=== PATIENT | female | born 1960 | race Caucasian/White ===

== ENCOUNTER 2018-09-05 18:56 | Observation (INO) | payer OTHER ==
[~2018-09-05 18:56] MED LIST: ISOVUE-370 76%-LOCM 1 ML ONE
[2018-09-05 19:47] LABS: #Eosinphils 0.2 thou/uL (0.0-0.7); #Monocytes 0.7 thou/uL (0.11-0.59); #Neutrophils 4.1 thou/uL (1.40-6.50); %Basophils 0.7 % (0.0-1.0); %Eosinophils 2.8 % (0.0-10.0); %Lymphocytes 17.3 % (21.0-51.0); %Neutrophils 68.2 % (42.0-75.0); Hemoglobin 8.5 g/dL (12.0-16.0); Mean Corpuscular Volume 77.4 fL (78.0-98.0); Mean Platelet Volume 6.9 fL (7.4-10.4); Platelet Count 355 thou/uL (130-400); RBC Distribution Width 15.2 % (11.5-14.5); Red Blood Cell (RBC) Count 3.56 mill/uL (4.20-5.40)
[2018-09-05 19:55] LABS: INR-International Normal Ratio 1.1; PTT 29.7 SEC (22.9-36.1); Prothrombin Time 13.8 SEC (12.0-14.7)
[2018-09-05 20:07] LABS: ALT (SGPT) 76 U/L (8-55); AST (SGOT) 26 U/L (5-34); Albumin 3.9 g/dL (3.5-5.0); Alkaline Phosphatase 74 U/L (40-150); Anion Gap 11 mmol/L (10-20); BUN (Urea Nitrogen) 8 mg/dL (9.8-20.1); Bilirubin, Total 0.2 mg/dL (0.2-1.2); CK (CPK) 97 U/L (29-168); Calc. Creatinine Clearance 0 mL/min (70-130); Carbon Dioxide 28 mmol/L (22-29); Chloride 100 mmol/L (98-107); Estimated GFR-MDRD 85; Globulin 2.6 g/dL (2.4-3.5); Glucose 91 mg/dL (70-105); Potassium 4.3 mmol/L (3.5-5.1); Protein, Total 6.5 g/dL (6.0-8.3); Sodium 135 mmol/L (136-145)
--- NOTE | 2018-09-05 20:13 | CT ---
EXAM: CTA of the chest HISTORY: Shortness of breath. The patient had laparoscopic surgery on 09/02/2018 COMPARISON: None TECHNIQUE: Multiple contiguous axial images were obtained a CTA of the chest with contrast per pulmon walter embolism protocol. 3-D oblique MIP reformats and direct coronal reformats were performed. FINDINGS: HEART: Normal in size without focal cardiac abnormality. PULMONARY ARTERIES: Normal in caliber without filling defects to suggest pulmonary emboli. MEDIASTINUM: No hilar or mediastinal lymphadenopathy. The large diaphragmatic hernia has been repaire d. Fluid is seen surrounding the distal esophagus. LUNGS: No focal infiltrates or masses. PLEURAL SPACE: There are small bilateral pleural effusions with adjacent atelectasis. CHEST WALL SOFT TISSUES: A stable hypodensity is seen in the right thyroid lobe. VISUALIZED OSSEOUS STRUCTURES: Unremarkable VISUALIZED SUBDIAPHRAGMATIC STRUCTURES: Postsurgical changes are seen in the upper abdomen near the g astroesophageal junction. IMPRESSION: 1. No evidence of pulmonary thromboembolism 2. Small bilateral pleural effusions with adjacent atelectasis.
[2018-09-05 22:20] VITALS: BMI 31.6
[2018-09-05] MEDS ORDERED: Sodium Chloride 0.9% 1,000 ML IV SCH (22:20)
[2018-09-05] MEDS ORDERED: Ondansetron ODT 4 MG TAB PO PRN (22:40)
[2018-09-05] MEDS: HYDROcodone/Acetaminophen 7.5/325 mg Tablet PO PRN (22:48)
[2018-09-06 05:51] LABS: Hemoglobin 8.4 g/dL (12.0-16.0)
[2018-09-06] MEDS ORDERED: busPIRone HCl 10 MG TAB PO SCH (09:00)
[2018-09-06] MEDS ORDERED: Gabapentin 300 MG CAP PO PRN (09:09)
[2018-09-06] MEDS: Gabapentin 300 MG CAP PO SCH ×2 (09:09→20:12)
[2018-09-06] MEDS: HYDROcodone/Acetaminophen 7.5/325 mg Tablet PO PRN (09:09)
--- NOTE | 2018-09-06 10:21 | HP ---
CHIEF COMPLAINT: Neck pain, shortness of breath. HISTORY OF PRESENT ILLNESS: This is a 57-year-old female, who is status post large paraesophageal hiatal hernia repair last Monday. She stayed through the weekend for pain. Most of her pain has been in her upper chest and left neck. She had minimal shortness of breath. She came back to the emergency room last night because she was worried about this pain, and I had told her that if it did not improve, she would need to come back. Her troponin was negative. Her EKG was negative. Her CT scan showed no PE. It did show some fluid around the distal esophagus consistent with hematoma. Her hemoglobin was slightly down. She is admitted for supportive therapy. PAST MEDICAL HISTORY AND SURGICAL HISTORY: See previous H and Ps. PHYSICAL EXAMINATION: VITAL SIGNS: Blood pressure 127/85, pulse is 79, respirations 14, O2 saturation is 92% to 93% on room air. GENERAL: She is in no acute distress this morning. CHEST: Coarse breath sounds. HEART: Regular rate. ABDOMEN: Soft, nontender. Wounds are healing well. LABORATORY DATA: White blood cell count is 6, hemoglobin this morning is 8.4. Sodium 135, potassium is 4.3, creatinine 0.71. ASSESSMENT: Postop large paraesophageal hiatal hernia repair with postop dyspnea expected as well as neck pain, likely from phrenic nerve irritation. PLAN: Try dose of Flexeril. Restart her home medications. I suspect she will be ready for discharge this afternoon. Job ID: [id number]
[2018-09-06] MEDS: Cyclobenzaprine 10 MG TAB PO PRN ×2 (13:09→21:11)
[2018-09-06] MEDS: Hydrocodone-Acetamin 15 ML UDCUP PO PRN (20:11)
[2018-09-06] MEDS: busPIRone HCl 10 MG TAB PO SCH (20:12)
[2018-09-06] MEDS: Apixaban 5 MG TAB PO SCH (20:12)
[2018-09-07 05:42] LABS: Hemoglobin 8.4 g/dL (12.0-16.0)
[2018-09-07 08:00] VITALS: BP 131/83; TEMP 97.3
[2018-09-07] MEDS: Apixaban 5 MG TAB PO SCH (08:56)
[2018-09-07] MEDS: Gabapentin 300 MG CAP PO SCH (08:56)
[2018-09-07] MEDS: busPIRone HCl 10 MG TAB PO SCH (08:56)
[2018-09-07] MEDS: Cyclobenzaprine 10 MG TAB PO PRN (08:57)
[2018-09-07] MEDS: Hydrocodone-Acetamin 15 ML UDCUP PO PRN (09:04)
--- NOTE | 2018-09-07 09:55 | DIS ---
DATE OF ADMISSION: 09/05/2018 DATE OF DISCHARGE: 09/07/2018 ADMITTING DIAGNOSES: Neck pain, shortness of breath, status post hiatal hernia repair. DISCHARGE DIAGNOSES: Neck pain, shortness of breath, status post hiatal hernia repair. PROCEDURE PERFORMED: None. STAFF: Albert Mcfarlane MD CONDITION ON DISCHARGE: Improved. HOSPITAL COURSE: The patient was admitted with small hematoma in her distal chest cavity after hiatal hernia repair. She also had left neck musculoskeletal pain. She was placed on Flexeril. Her symptoms in the neck improved. Her shortness of breath improved. She is saturating adequately on room air. Her hemoglobin was down slightly since surgery, but it is stable throughout her hospital stay. She is being discharged home. She will follow up with me in 2 weeks. She will continue to use her incentive spirometer. Job ID: [id number]
--- NOTE | 2018-09-08 16:52 | EKG ---
Test Reason : Blood Pressure : / mmHG Vent. Rate : 096 BPM Atrial Rate : 096 BPM P-R Int : 156 ms QRS Dur : 084 ms QT Int : 338 ms P-R-T Axes : 025 039 000 degrees QTc Int : 427 ms Normal sinus rhythm Normal ECG Left atrial enlargement Confirmed by NILA ANDERSON, JORGE A Kasper ([id number]), web editor SIMON SHAW ([id number]) on 09/08/2018 4:51:48 PM Referred By: Confirmed By:JORGE A DOTSON MD
== END 2018-09-07 11:33 | disposition home or self-care (01) ==
LOC: ERS 18:56 → SURG B 20:30
PROVIDERS: ADMIT Surgery; ATTEND Surgery
DX: M54.2 Cervicalgia (principal); R06.02 Shortness of breath; J95.861 Postprocedural hematoma of a respiratory system organ or structure following other procedure
CPT/HCPCS: 36415; 71275; 80053; 82550; 83880; 84484; 85014; 85018; 85025; 85610; 85730; 93005; 94640; 96361; 96374; G0378; J7620; Q0162

== ENCOUNTER 2018-09-12 15:53 | Outpatient (CLI) | payer OTHER ==
--- NOTE | 2018-09-12 17:12 | ULT ---
EXAM: Left lower extremity venous ultrasound with doppler HISTORY: Left leg pain. Swelling. COMPARISON: None. TECHNIQUE: Michael scale, color flow, Doppler imaging with spectral waveform analysis performed in the left lower e xtremity venous system. FINDINGS: There is compressibility, presence of flow and augmentation in the common femoral vein, femoral vein and popliteal vein. There is flow in the greater saphenous vein, profunda vein, and posterior tibial vein. IMPRESSION: No evidence of thrombus in the left lower extremity deep venous system. POS: [facility]
== END 2018-09-12 15:54 | disposition home or self-care (01) ==
LOC: ULT 15:53
PROVIDERS: ATTEND Physician Assistant
DX: M79.605 Pain in left leg (principal); M79.89 Other specified soft tissue disorders

== ENCOUNTER 2018-11-05 08:05 | Emergency (ER) | payer OTHER ==
[2018-11-05 08:48] LABS: #Eosinphils 0.1 thou/uL (0.0-0.7); #Monocytes 0.4 thou/uL (0.11-0.59); #Neutrophils 1.7 thou/uL (1.40-6.50); %Basophils 0.2 % (0.0-1.0); %Lymphocytes 31.7 % (21.0-51.0); %Monocytes 11.1 % (0.0-10.0); %Neutrophils 53.9 % (42.0-75.0); Hemoglobin 10.2 g/dL (12.0-16.0); Mean Corpuscular HGB CONC 31.8 g/dL (32.0-36.0); Mean Corpuscular Hemoglobin 23.9 pg (27.0-31.0); Mean Corpuscular Volume 75.1 fL (78.0-98.0); Platelet Count 263 thou/uL (130-400); RBC Distribution Width 15.4 % (11.5-14.5); Red Blood Cell (RBC) Count 4.26 mill/uL (4.20-5.40); White Blood Cell (WBC) Count 3.1 thou/uL (4.8-10.8)
[2018-11-05 09:11] LABS: ALT (SGPT) 12 U/L (8-55); AST (SGOT) 16 U/L (5-34); Alkaline Phosphatase 54 U/L (40-150); Anion Gap 11 mmol/L (10-20); BUN (Urea Nitrogen) 9 mg/dL (9.8-20.1); Bilirubin, Total 0.3 mg/dL (0.2-1.2); Calc. Creatinine Clearance 0 mL/min (70-130); Carbon Dioxide 24 mmol/L (22-29); Chloride 102 mmol/L (98-107); Estimated GFR-MDRD 79; Globulin 2.9 g/dL (2.4-3.5); Glucose 101 mg/dL (70-105); Lipase 18 U/L (8-78); Potassium 3.8 mmol/L (3.5-5.1); Protein, Total 6.9 g/dL (6.0-8.3); Sodium 133 mmol/L (136-145)
[2018-11-05 10:01] LABS: Bilirubin Negative (Negative); Blood, Urine Negative (Negative); Clarity Clear (Clear); Glucose, Urine (Dipstick) Normal (Negative); Leukocyte Negative Leu/uL (Negative); Nitrite Negative (Negative); Protein, Urine (Dipstick) Negative (Neg-Trace); Urobilinogen Normal mg/dL (Less than 2)
--- NOTE | 2018-11-05 10:40 | CT ---
CT PULMONARY ANGIOGRAM WITH IV CONTRAST AND 3D POSTPROCESSING: HISTORY: Elevated D-dimer, shortness of breath. FINDINGS: Comparison is made with the exam of 09/05/2018. There is good contrast opacification of the pulmonary arterial vasculature without filling defects to suggest pulmonary embolism. The thoracic aorta is well opacified without aneurysmal dissection. No pleural or pericardial effusions are seen. No pneumothoraces, focal areas of consolidation, or lung masses are identified. There is a 3 mm peripheral nodule in the left lower lobe which was not seen on the previous exam due to the pleural effusion. There are postop changes in the GE junction. Dege nerative changes are seen in the spine. IMPRESSION: No CT evidence of pulmonary embolism or thoracic aortic aneurysm/dissection. POS: [facility]
--- NOTE | 2018-11-05 11:19 | CT ---
CT ABDOMEN AND PELVIS WITH IV CONTRAST: HISTORY: Diarrhea. Decreased appetite. FINDINGS: A 3 mm peripheral nodule is seen in the left lower lobe. Postop changes are noted in the GE junction . There are three small, subcentimeter low density lesions in the right lobe of the liver, measuring 5 mm, 8 mm, and 7 mm, superior to inferior, respectively. No calcified gallstones are seen. The sp nany, pancreas, adrenal glands, and kidneys are normal. No free air, free fluid, or lymphadenopathy is seen in the abdomen or pelvis. No aneurysmal dilatation of the abdominal aorta is noted. There a re degenerative changes in the spine. The small bowel loops are not abnormally dilated. The patient is post hysterectomy. No abnormally distended, fluid-filled appendix is seen. IMPRESSION: 1. No acute process. 2. Small, low density lesions of the liver are statistically likely to represent benign findings in the absence of known malignancy. POS: [facility]
[2018-11-05] MEDS ORDERED: ISOVUE-370 76%-LOCM 1 ML ONE (16:24)
== END 2018-11-05 10:31 | disposition home or self-care (01) ==
LOC: ERS 08:05
DX: R19.7 Diarrhea, unspecified (principal); R53.1 Weakness; I10 Essential (primary) hypertension; Z86.711 Personal history of pulmonary embolism; K21.9 Gastro-esophageal reflux disease without esophagitis; Z79.899 Other long term (current) drug therapy; Z79.01 Long term (current) use of anticoagulants
CPT/HCPCS: 36415; 71275; 74177; 80053; 81003; 83690; 85025; 85379; 96360; 96361; Q9966

== ENCOUNTER 2018-11-14 11:55 | Day surgery (SDC) | payer OTHER ==
[2018-11-13 13:30] VITALS: BMI 29.5
--- NOTE | 2018-11-14 20:55 | OP ---
DATE OF PROCEDURE: 11/14/2018 PREOPERATIVE DIAGNOSIS: A 58-year-old female with change in bowel habits, progressive constipation over the last 6 weeks. The patient is undergoing colonoscopy. POSTOPERATIVE DIAGNOSES: 1. Redundant colon. 2. Hemorrhoids. PROCEDURE PERFORMED: Colonoscopy. DESCRIPTION OF PROCEDURE: The patient was placed on her left lateral position and was given sedation by Anesthesia Department. A rectal exam was done before the scope was advanced into the rectum. No lesions felt on rectal exam. A Pentax video colonoscope was introduced into the rectum and advanced all the way into the cecum. The prep was excellent. The mucosa appeared normal throughout the colon with normal vascular pattern. The patient had a tortuous and redundant colon. The appendicular opening, ileocecal valve, cecum, no pathology. On withdrawal of the scope from cecum to ascending colon, hepatic flexure, no pathology seen. In the transverse colon, splenic flexure, descending colon, sigmoid colon, no lesion seen. Retroflexion of scope in the rectum showed hemorrhoids. Job ID: [id number]
--- NOTE | 2018-11-15 10:05 | OP ---
DATE OF PROCEDURE: 11/14/2018 PROCEDURES PERFORMED: 1. Esophagogastroduodenoscopy. 2. Balloon dilation to size 18 mm. PREOPERATIVE DIAGNOSES: A 58-year-old female with chronic acid reflux, status post hiatal hernia repair. The patient comes with intermittent nausea and vomiting. She underwent EGD. POSTOPERATIVE DIAGNOSES: Distal esophageal ring, but not obstructing. mucosal hyperemia, erythema noted. Status post fundoplication appears to be intact. No pathology seen to explain the nausea or vomiting and pre-dilation with the balloon done to size 18 mm. DESCRIPTION OF PROCEDURE: The patient was placed on her left lateral position and was given sedation by Anesthesia Department. A Pentax video gastroscope under direct vision passed down the oropharynx, past the GE junction into the stomach and subsequently into the descending duodenum. The esophageal mucosa appeared normal except over the distal esophagus area was really not tight. The scope was advanced into stomach without difficulty. Retroflexion failed to show any pathology in the fundus or cardia. In the gastric body, gastric antrum, no lesion seen. In the duodenal bulb, descending duodenum, no pathology seen. A Bard balloon size 15 to 18 mm placed at the distal esophagus. It was easily brought across the GE junction without any resistance. The balloon was pushed back several times back and forth. This was done with the stage II balloon inflation and also stage III balloon inflation. The stomach was decompressed and the balloon removed. DISCHARGE PLAN: This is a 58-year-old female, came for EGD and colonoscopy. The EGD was done because of nausea and vomiting. The EGD showed really no pathology. She underwent empiric dilation with a balloon size 18 mm. The colonoscopy was basically negative. DISCHARGE RECOMMENDATION: 1. Resume medicines as before. 2. May try milk of magnesia or MiraLAX for constipation. 3. To call me for abdominal pain, hematochezia, or fever. 4. In the absence of any of the above symptoms, she will come back to me in 2 weeks. Job ID: [id number]
== END 2018-11-14 16:20 | disposition home or self-care (01) ==
LOC: SDC 11:55
PROVIDERS: ATTEND Internal Medicine Gastroenterology
PROC: 0DJD8ZZ Inspection of Lower Intestinal Tract, Via Natural or Artificial Opening Endoscopic (ICD-10-PCS; principal; 2018-11-14)
PROC: 0D748ZZ Dilation of Esophagogastric Junction, Via Natural or Artificial Opening Endoscopic (ICD-10-PCS; principal; 2018-11-14)
DX: R19.4 Change in bowel habit (principal); Q43.8 Other specified congenital malformations of intestine; K64.9 Unspecified hemorrhoids; K21.9 Gastro-esophageal reflux disease without esophagitis; Z79.899 Other long term (current) drug therapy

== ENCOUNTER 2019-01-07 12:59 | Outpatient (CLI) | payer OTHER ==
--- NOTE | 2019-01-07 17:37 | RAD ---
TWO VIEW CHEST: Indication: Dyspnea. Comparison: 09-05-18 FINDINGS: Lung devries appear clear. No evidence of infiltrate identified. There is a sliding diaphragmatic anne ia which was confirmed on recent CT of 11-05-18. Heart and mediastinum unremarkable. Osseous structures are unremarkable. Vascular markings normal. IMPRESSION: No acute lung process. Diaphragmatic hernia has been previously noted. POS: [facility]
== END 2019-01-07 13:00 | disposition home or self-care (01) ==
LOC: RAD 12:59
PROVIDERS: ATTEND Internal Medicine Pulmonary Disease
DX: R06.00 Dyspnea, unspecified (principal); K44.9 Diaphragmatic hernia without obstruction or gangrene
CPT/HCPCS: 71046

== ENCOUNTER 2019-02-11 15:15 | Outpatient (CLI) | payer OTHER ==
--- NOTE | 2019-02-11 15:45 | RAD ---
Exam:Left hip 2 views HISTORY: Pain. COMPARISON: None FINDINGS: Contour of the femoral head is maintained. Joint spaces preserved. Visualized bony pelvis i s unremarkable. IMPRESSION: Unremarkable 2 views left hip.
--- NOTE | 2019-02-11 15:54 | RAD ---
Exam: One view thoracic spine 1 view lumbar spine HISTORY: Evaluate for scoliosis. Pain. FINDINGS: Limited evaluation thoracic vertebra. No obvious malalignment. There is dextrorotatory scoliosis of the lumbar spine at the L1, L2 and to lesser extent L3 level. 7 degrees of rightward curvature. IMPRESSION: Dextrorotatory scoliosis of the lumbar spine as above.
== END 2019-02-11 15:16 | disposition home or self-care (01) ==
LOC: TBSIIMAG 15:15
PROVIDERS: ATTEND Neurological Surgery
DX: M41.86 Other forms of scoliosis, lumbar region (principal); M25.559 Pain in unspecified hip
CPT/HCPCS: 72081

== ENCOUNTER 2019-05-27 13:33 | Outpatient (CLI) | payer OTHER ==
--- NOTE | 2019-05-31 15:57 | MMO ---
Bilateral MAMMO Bilat Screen [facility]. CLINICAL HISTORY: Patient is 58 years old and is seen for screening. The patient has the following family history of breast cancer: paternal grandmother and 2 paternal aunts. The patient has no personal history of cancer. The patient has a history of left Excisional Biopsy in 1985. VIEWS: The views performed were: bilateral craniocaudal with tomosynthesis; bilateral mediolateral oblique with tomosynthesis; and left mediolateral oblique. FILMS COMPARED: The present examination has been compared to a prior imaging study performed at This study has been interpreted with the assistance of computer-aided detection. MAMMOGRAM FINDINGS: There are scattered fibroglandular densities. Finding 1: There are stable benign appearing calcifications seen in both breasts. Finding 2: There are stable benign appearing densities seen in both breasts. There are no suspicious masses, suspicious calcifications, or new areas of architectural distortion. IMPRESSION: THERE IS NO MAMMOGRAPHIC EVIDENCE OF MALIGNANCY. A ROUTINE FOLLOW-UP MAMMOGRAM IN 1 YEAR IS RECOMMENDED. THE RESULTS OF THIS EXAM WERE SENT TO THE PATIENT. ACR BI-RADS Category 2 - Benign finding MAMMOGRAPHY NOTE: 1. A negative mammogram report should not delay a biopsy if a dominant of clinically suspicious mass is present. 2. Approximately 10% to 15% of breast cancers are not detected by mammography. 3. Adenosis and dense breasts may obscure an underlying neoplasm. Reported by: AMBERLY FELIPE MD Electonically Signed: [id number]
== END 2019-05-27 13:34 | disposition home or self-care (01) ==
LOC: BICMAMMO 13:33
PROVIDERS: ATTEND Physician Assistant
DX: Z12.31 Encounter for screening mammogram for malignant neoplasm of breast (principal); Z80.3 Family history of malignant neoplasm of breast; Z91.89 Other specified personal risk factors, not elsewhere classified
CPT/HCPCS: 77063; 77067

== ENCOUNTER 2019-06-05 09:56 | Outpatient (CLI) | payer OTHER ==
--- NOTE | 2019-06-05 10:37 | ULT ---
EXAM: Abdominal ultrasound complete: HISTORY: Liver lesion COMPARISON: CT, 11/05/2018 FINDINGS: Liver echogenicity is unremarkable. There are 2 circumscribed cysts one in the right lobe and the oth er one adjacent to the gallbladder the largest of which approximates 1 cm in size which appear to represent 2 of the 3 previously noted low-attenuation foci on the prior CT. Multiple gallstones without overt gallbladder wall thickening or pericholecystic fluid. The common bile duct is Within normal limits. Visualized pancreas: Unremarkable. Visualized abdominal aorta: Unremarkable. Visualized IVC: Unremarkable. Visualized spleen: Unremarkable. Visualized kidneys: No evidence for hydronephrosis or solid or cystic mass. No mass, abscess, adenopathy, or abnormal fluid collection or other acute process. IMPRESSION: Multiple cholelithiasis without CT evidence for acute cholecystitis, negative Alva's sign. Circumscribed anechoic foci within the liver, representing 2 of the previously noted 3 liver low-atte nuation foci.
== END 2019-06-05 09:57 | disposition home or self-care (01) ==
LOC: BICULT 09:56
PROVIDERS: ATTEND Physician Assistant
DX: K76.9 Liver disease, unspecified (principal); K80.20 Calculus of gallbladder without cholecystitis without obstruction; R93.5 Abnormal findings on diagnostic imaging of other abdominal regions, including retroperitoneum
CPT/HCPCS: 93975

== ENCOUNTER 2020-03-09 14:45 | Outpatient (CLI) | payer OTHER ==
--- NOTE | 2020-03-09 15:41 | RAD ---
XR Lumbar Spine 2 Or 3 View History: Lumbago Comparison: None. Findings: Mild dextro scoliosis upper lumbar spine. Moderate right-sided L1/L2 and L2/L3 degenerative disc space height loss. Asymmetric narrowing left SI joint. Pubic symphysis is intact. No acute fracture or malalignment. No significant listhesis. Impression: Mild-moderate dextro scoliosis of the lumbar spine with asymmetric right-sided degenerati ve disc space height loss at L1/L2 and L2/L3. No acute fracture or malalignment.
--- NOTE | 2020-03-09 15:47 | RAD ---
LEFT HIP 2 VIEWS: Date: 03/09/2020 HISTORY: Hip pain. FINDINGS: Femoral head contour is normal. Minimal spurring from the femoral head. No fracture or acute lesion. IMPRESSION: Unremarkable left hip. Minimal degenerative change. POS: [facility]
== END 2020-03-09 14:46 | disposition home or self-care (01) ==
LOC: BICRAD 14:45
PROVIDERS: ATTEND Physician Assistant
DX: M54.42 Lumbago with sciatica, left side (principal); M25.552 Pain in left hip; M16.12 Unilateral primary osteoarthritis, left hip; M41.86 Other forms of scoliosis, lumbar region; M51.36 Other intervertebral disc degeneration, lumbar region; R29.890 Loss of height
CPT/HCPCS: 72100

== ENCOUNTER 2020-03-31 08:34 | Outpatient (CLI) | payer OTHER ==
--- NOTE | 2020-03-31 10:07 | MRI ---
MRI LUMBAR SPINE PERFORMED WITHOUT CONTRAST ENHANCEMENT: Date: 03/31/2020 HISTORY: Low back pain with left-sided sciatica. Pain radiates to left buttock, hip, and down her left leg. COMPARISON: 04/20/2018 exam. FINDINGS: The vertebral bodies maintain normal height. Disc narrowing seen at L1-2, L2-3, and L3-4. Modic-type changes again noted at the L2-3 level. There is no significant periaortic adenopathy and the visualiz ed kidneys are unremarkable. T12-L1: Unremarkable. L1-2: No canal or foraminal stenosis at this level. L2-3: There are degenerative facet changes at this level. No significant canal or foraminal stenosis . L3-4: Degenerative facet changes at this level and disc bulge, associated with some borderline canal narrowing. No foraminal stenosis. L4-5: Degenerative facet and ligamentous hypertrophic changes without significant canal or foraminal stenosis. L5-S1: Degenerative facet changes at this level, slightly more right-sided, without signs of canal o r foraminal stenosis. IMPRESSION: 1. Arthritic changes of the spine. No signs of any significant canal or foraminal stenosis. 2. Incidental note is made of a small T2 hyperintense lesion within the right lobe of the liver, pro bably a cyst, stable as compared to the previous exam. POS: [facility]
== END 2020-03-31 08:35 | disposition home or self-care (01) ==
LOC: BICMRI 08:34
PROVIDERS: ATTEND Physician Assistant
DX: M41.26 Other idiopathic scoliosis, lumbar region (principal); M54.42 Lumbago with sciatica, left side; M47.816 Spondylosis without myelopathy or radiculopathy, lumbar region
CPT/HCPCS: 72148

== ENCOUNTER 2020-04-02 04:58 | Observation (INO) | payer OTHER ==
[2020-04-02] MEDS ORDERED: Ondansetron PF 4 MG/2 ML Vial ONE (05:27)
[2020-04-02] MEDS ORDERED: Lidocaine Viscous Sol 2% 15 ml UD Cup ONE (05:27)
[2020-04-02] MEDS ORDERED: Mag-Al 1200 mg/1200 mg/30 ML UDCUP ONE ×2 (05:27→08:26)
[2020-04-02 05:51] LABS: #Basophils 0.1 thou/uL (0.0-0.2); #Lymphocytes 0.7 thou/uL (1.20-3.40); #Monocytes 0.4 thou/uL (0.11-0.59); #Neutrophils 8.2 thou/uL (1.40-6.50); %Basophils 0.6 % (0.0-1.0); %Eosinophils 0.1 % (0.0-10.0); %Lymphocytes 7.4 % (21.0-51.0); %Monocytes 4.2 % (0.0-10.0); %Neutrophils 87.7 % (42.0-75.0); Hemoglobin 15.1 g/dL (12.0-16.0); Mean Corpuscular HGB CONC 33.5 g/dL (32.0-36.0); Mean Corpuscular Hemoglobin 31.8 pg (27.0-31.0); Mean Platelet Volume 6.9 fL (7.4-10.4); Platelet Count 311 thou/uL (130-400); RBC Distribution Width 11.6 % (11.5-14.5); Red Blood Cell (RBC) Count 4.75 mill/uL (4.20-5.40); White Blood Cell (WBC) Count 9.4 thou/uL (4.8-10.8)
[2020-04-02 06:12] LABS: ALT (SGPT) 26 U/L (8-55); AST (SGOT) 27 U/L (5-34); Albumin 4.6 g/dL (3.5-5.0); Alkaline Phosphatase 83 U/L (40-110); Anion Gap 22 mmol/L (10-20); BUN (Urea Nitrogen) 13 mg/dL (9.8-20.1); Bilirubin, Total 0.5 mg/dL (0.2-1.2); Calc. Creatinine Clearance 0 mL/min (70-130); Calcium 9.6 mg/dL (7.8-10.44); Carbon Dioxide 24 mmol/L (22-29); Chloride 96 mmol/L (98-107); Globulin 3.7 g/dL (2.4-3.5); Glucose 141 mg/dL (70-105); Lipase 19 U/L (8-78); Potassium 3.7 mmol/L (3.5-5.1); Protein, Total 8.3 g/dL (6.0-8.3); Sodium 138 mmol/L (136-145)
[2020-04-02] MEDS ORDERED: Sucralfate 1 GM/10 ML UDCUP ONE (06:42)
[2020-04-02] MEDS ORDERED: Famotidine/PF 20 mg/2ml Vial ONE (06:42)
[2020-04-02 08:17] LABS: SARS-CoV-2 MS2 Positive; SARS-CoV-2 N Gene Negative; SARS-CoV-2 S Gene Negative; SARS-CoV-2 by NAA Not Detected (NotDetected); SARS-CoV-2 orf1ab Negative
[2020-04-02] MEDS ORDERED: Acetaminophen 500 MG TAB ONE (08:26)
--- NOTE | 2020-04-02 09:26 | RAD ---
PORTABLE CHEST 1 VIEW: Date: 04/02/2020 Time: 0524 hours HISTORY: Cough. Chest pain. Nausea. COMPARISON: 01/07/2019. FINDINGS: The heart size is mildly enlarged. The aorta is tortuous. The lungs are well expanded without lobar c onsolidation, pneumothoraces, larry pulmonary edema, or pleural effusions. A hiatal hernia is present . IMPRESSION: No acute process. POS: [facility]
[2020-04-02] MEDS ORDERED: Promethazine HCl 25 MG/ML VIAL ONE ×2 (10:07→12:50)
--- NOTE | 2020-04-02 11:23 | ULT ---
EXAM: Right upper quadrant ultrasound PROVIDED CLINICAL HISTORY: Abdominal pain COMPARISON: None FINDINGS: Visualized portions of the pancreas appear normal. Liver demonstrates no mass or intrahepatic biliary ductal dilatation. Common duct is nondilated. Gallbladder demonstrates gallstones without wall thickening or pericholecy stic fluid. Right kidney demonstrates no hydronephrosis or mass. IMPRESSION: Cholelithiasis without evidence for acute findings related to the gallbladder.
[2020-04-02] MEDS ORDERED: Morphine 4 MG/ML VIAL ONE (12:50)
[2020-04-02] MEDS ORDERED: Pantoprazole 40 MG VIAL ONE ×2 (13:09→14:05)
--- NOTE | 2020-04-02 13:40 | CT ---
Exam: CT brain PROVIDED CLINICAL HISTORY: Headache COMPARISON: None FINDINGS: The ventricular system is normal in size and morphology. No evidence for intracranial hemorrhage or mass effect. The extracranial soft tissues and osseous structures demonstrate no evidence for an acute abnormality. IMPRESSION: No evidence for intracranial hemorrhage or mass effect.
[2020-04-02] MEDS ORDERED: Iopamidol-370 76% 500 ML 1 ML ONE (13:52)
--- NOTE | 2020-04-02 13:53 | CT ---
EXAM: CT Abdomen Pelvis W Con PROVIDED CLINICAL HISTORY: Abdominal pain COMPARISON: 11/05/2018 FINDINGS: The visualized lung bases are free of significant opacity. There is interval development of a paraesophageal hiatal hernia. The herniated portions of the stomac h appear moderately dilated and fluid-filled. The intra-abdominal/subdiaphragmatic portions of the proximal stomach proximal to the herniation is moderately dilated and fluid-filled. Postoperative kendall nges are noted in the region of the gastroesophageal junction. The solid abdominal organs demonstrate a stable CT appearance. There is no additional bowel dilatation, inflammatory fat stranding, free fluid or free air apparent. There is no evidence for appendicitis. The regional vascular structures appear unremarkable. The osseous structures demonstrate no concerning lytic or blastic lesions. IMPRESSION: Development of paraesophageal hiatal hernia with findings suspicious for associated gastric obstructi on/volvulus.
[2020-04-02] MEDS ORDERED: Ondansetron ODT 4 MG TAB PO PRN (16:04)
[2020-04-02] MEDS ORDERED: Morphine 2 MG/ML VIAL SLOW IVP PRN (16:04)
[2020-04-02 16:45] LABS: Troponin I Less than 0.010 ng/mL (< 0.028)
--- NOTE | 2020-04-02 16:46 | HP ---
PRIMARY CARE PHYSICIAN: TELEMARKETING SALES REPRESENTATIVE: Dr. Hammond. CHIEF COMPLAINT: Vomiting off and on for 2 weeks. HISTORY OF PRESENT ILLNESS: Ms. Prado is a pleasant 59-year-old female, who has a history of hypertension as well as a history of hiatal hernia. She says that she had surgery for the hiatal hernia back in August of 2018 and had been doing fairly well since then. She does admit to an occasional heartburn symptom, but in the last week, she has been vomiting off and on, and then at around 7 p.m., she started having vomiting almost every 15 to 20 minutes. This started last night and then continued into the morning. She says that she could look at food and it would make her sick, even the smell of food. She also notes some pain in her epigastric region, which radiated into her shoulder and arm. She came to the emergency room for evaluation, and in the ER, a CT scan of the abdomen and pelvis was done as well as an ultrasound, and the CT showed the development of a paraesophageal hiatal hernia with possible gastric obstruction or volvulus. She is being admitted for further evaluation. REVIEW OF SYSTEMS: All systems were reviewed and were negative except for that mentioned in the history of present illness. PAST MEDICAL HISTORY: Significant for hypertension, hiatal hernia, and chronic low back pain. PAST SURGICAL HISTORY: She has had surgery for the paraesophageal hernia, status post repair in 2019. She has had a colonoscopy, hysterectomy, and a breast biopsy. ALLERGIES: NO KNOWN DRUG ALLERGIES. SOCIAL HISTORY: She admits to occasional alcohol use. Denies any smoking. She is , but and has one daughter. FAMILY HISTORY: No history of any heritable diseases. MEDICATIONS: She really did not know the names and doses of her medications other than; 1. BuSpar 10 mg daily. 2. Metoprolol 50 mg daily. PHYSICAL EXAMINATION: GENERAL: She is alert and oriented. She appears to be in some mild discomfort due to pain. She is well developed and well nourished. VITAL SIGNS: Blood pressure 168/79, heart rate 87, respiratory rate of 22, temperature is 98.6. HEENT: Pupils are equal, round, and reactive. Extraocular muscles are intact. Sclerae are anicteric. Throat, there is no erythema, no exudates. NECK: No adenopathy, no bruits. LUNGS: Clear to auscultation except for some rhonchi. CARDIOVASCULAR: She has a normal S1 and S2. There is no S3 or S4. No murmurs, clicks, or rubs. ABDOMEN: Soft. She did have some exquisite epigastric tenderness. There is no rebound or guarding. No organomegaly. EXTREMITIES: There is no clubbing or cyanosis. No edema. No calf tenderness. No joint effusions. NEUROLOGIC: Grossly nonfocal. SKIN AND INTEGUMENT: No skin changes. No rash. LABORATORY DATA: CBC; the white blood cell count is 9.4, hemoglobin 15.1, hematocrit is 45.1, and platelet count is 311. Sodium is 138, potassium 3.7, chloride is 96, CO2 is 24, BUN of 13, creatinine 0.86, glucose is 141. COVID screen is negative. Troponin is less than 0.010. Again, CT scan of the abdomen showed the development of a paraesophageal hiatal hernia and possible gastric volvulus. Abdominal ultrasound showed cholelithiasis without findings for acute cholecystitis. CT scan of the brain was negative. ASSESSMENT: 1. This is a pleasant 59-year-old female who presents with intractable nausea and vomiting. She has a history of surgery for paraesophageal hernia and evidence of possible gastric volvulus on CT scan. She will be admitted, started on IV fluids, antiemetics, and analgesics IV. We will consult both GI and General Surgery to see what are the best recommendations. Should she become uncomfortable tonight, then an NG tube will be placed. 2. Hypertension. We will place her on p.r.n. medications for blood pressure, and further recommendations to follow. Job ID: [id number]
[2020-04-02] MEDS: Morphine 4 MG/ML VIAL SLOW IVP PRN (17:24)
[2020-04-02] MEDS: Ondansetron PF 4 MG/2 ML Vial IVP PRN (17:24)
[2020-04-02] MEDS: Potassium Chloride 20 MEQ in Lactated Ringer's 1,000 ML IV SCH (18:02)
[2020-04-02] MEDS ORDERED: Chloraseptic Spray 180 ml Bottle PO PRN (20:24)
[2020-04-02] MEDS: Pantoprazole 40 MG VIAL IVP SCH (21:26)
[2020-04-02] MEDS ORDERED: hydrALAZINE 20 MG/ML VIAL SLOW IVP PRN (23:50)
[2020-04-02] MEDS ORDERED: Labetalol HCl 100 MG/20 ML VIAL SLOW IVP PRN (23:50)
[2020-04-03] MEDS ORDERED: Sodium Chloride 0.9% 10 ML ONE ×2 (00:01→04:55)
[2020-04-03] MEDS: Ondansetron PF 4 MG/2 ML Vial IVP PRN (00:11)
[2020-04-03] MEDS: Morphine 4 MG/ML VIAL SLOW IVP PRN (00:15)
[2020-04-03] MEDS: Potassium Chloride 20 MEQ in Lactated Ringer's 1,000 ML IV SCH ×2 (04:43→12:30)
[2020-04-03 06:37] LABS: #Lymphocytes 0.9 thou/uL (1.20-3.40); %Eosinophils 0.2 % (0.0-10.0); %Lymphocytes 7.7 % (21.0-51.0); %Monocytes 8.3 % (0.0-10.0); %Neutrophils 83.8 % (42.0-75.0); Hemoglobin 14.4 g/dL (12.0-16.0); Mean Corpuscular HGB CONC 32.9 g/dL (32.0-36.0); Mean Corpuscular Hemoglobin 31.7 pg (27.0-31.0); Mean Corpuscular Volume 96.3 fL (78.0-98.0); Mean Platelet Volume 6.7 fL (7.4-10.4); Platelet Count 278 thou/uL (130-400); RBC Distribution Width 11.7 % (11.5-14.5); Red Blood Cell (RBC) Count 4.53 mill/uL (4.20-5.40); White Blood Cell (WBC) Count 11.9 thou/uL (4.8-10.8)
[2020-04-03 06:57] LABS: Anion Gap 14 mmol/L (10-20); BUN (Urea Nitrogen) 5 mg/dL (9.8-20.1); Calc. Creatinine Clearance 107 mL/min (70-130); Carbon Dioxide 27 mmol/L (22-29); Chloride 104 mmol/L (98-107); Glucose 106 mg/dL (70-105); Potassium 3.7 mmol/L (3.5-5.1); Sodium 141 mmol/L (136-145)
--- NOTE | 2020-04-03 07:12 | CON ---
DATE OF CONSULTATION: 04/02/2020 REASON FOR CONSULTATION: Abdominal pain, nausea, severe retching, and vomiting. HISTORY OF PRESENT ILLNESS: Ms. Boy Prado is a very pleasant 59-year-old female, who is known to me from before. The patient had seen me in 2019 for chronic acid reflux, underwent EGD. She was found to have a large paraesophageal hiatus hernia. She was sent to Dr. Charly Mcfarlane and underwent surgery in August 2018. She also had negative colonoscopy in 2019, except for redundant colon. She has had chronic constipation over the years and has been taking milk of magnesia off and on. The patient had done well after hiatus hernia surgery. The patient presented to the ER with upper abdominal pain, nausea, severe retching, and vomiting. Her symptoms are mild to begin with. It started 2 days ago. She had some mild nausea and vomiting 2 days ago, but yesterday, she started having severe retching, nausea, and vomiting, not able to keep even water down. She came to the ER today because of above reasons. She has had abdominal sonogram, which showed gallstones. She had a CAT scan of abdomen, which revealed development of what appears to be paraesophageal hiatus hernia and also what appears to be some twisting of the gastric body and possibility of gastric volvulus. The patient had NG tube placement done in the ER, which drained nearly 500 mL of fluid. After the NG tube, the retching and nausea had improved_. Abdominal pain is over the epigastric area. It is almost resolved. When I saw her on the floor, she appears very comfortable. She has no more nausea, no retching. However, she is not really happy to have the NG tube. The NG tube does not have any fluid in the canister. Her bowel movements are constipated, has been taking laxatives on regular basis . The patient has no history of hematemesis. No history of any vomiting or coffee-ground emesis. The patient had no relevant history. ALLERGIES: NONE. SOCIAL HISTORY: The patient does not smoke or drink alcohol. MEDICAL ILLNESSES: 1. Hypertension. 2. Chronic acid reflux. 3. Large paraesophageal hiatus hernia, status post surgery in August 2018. 4. Osteoarthritis. 5. Allergic rhinitis. 6. Anxiety. 7. Chronic back pain. 8. History of pulmonary embolism in April 2018, was on anticoagulation. 9. Hysterectomy. 10. Breast biopsy. MEDICATION LIST: Reviewed. FAMILY HISTORY: Brother had CVA. No family history of any cancer. REVIEW OF SYSTEMS: 10-point system review, CONSTITUTIONAL: No history of any weight loss. She has had good exercise tolerance. HEENT: No chronic headache. Eyes, no impaired vision. No diplopia. She has no hearing loss. Nose, no nosebleed. Throat, no sore throat. NECK: No stiffness or limitation of movement. BREASTS: No breast masses. LUNGS: No chronic coughing. No hemoptysis. No dyspnea. CARDIOVASCULAR SYSTEM: No chest pain. No palpitation. No dyspnea, orthopnea, or PND. GI: Abdominal pain, nausea, and vomiting. She has severe retching, history of constipation. : No dysuria, hematuria, or frequency of urination. MUSCULOSKELETAL, NEURO, ENDOCRINE, HEMATOLOGICAL: Not known. PHYSICAL EXAMINATION: GENERAL: She actually appears very comfortable, in no distress. VITAL SIGNS: Very stable. She is afebrile. Pulse is 86, blood pressure 160/77. HEENT: Conjunctivae clear. NECK: Supple. No adenitis or thyromegaly noted. CARDIOVASCULAR SYSTEM: Normal heart sounds. LUNGS: Clear to auscultation. ABDOMEN: Soft and nondistended. She is mildly tender over the epigastric area. Overall exam is very benign. She has normal bowel sounds. Abdomen is nondistended. EXTREMITIES: Reveal no edema. LABORATORY DATA: Shows no leukocytosis. Her WBC count was 9400, hemoglobin was 15.1, hematocrit 45.1, MCV 95, platelet count 311,000, polymorphs 87, lymphocytes 7. Chem-7 is actually normal. Her BUN is normal at 13. CO2 is 22, chloride 96, creatinine 0.86, glucose 141, calcium 9.6, bilirubin 0.5, AST 27, ALT 26, alkaline phosphatase 83, albumin 4.4. DIAGNOSTIC STUDIES: Abdominal CAT scan done, showed what appears to be recurrence of hiatus hernia and possibly a gastric volvulus. Her abdominal sonogram showed gallstones. CLINICAL IMPRESSION: 1. 59-year-old female with history of a large hiatus hernia, status post repair in 2019. She presents with symptoms of what appears to be typical of gastric volvulus. She has no bandemia, no leukocytosis. Her abdominal exam is very benign since she has NG tube. 2. Chronic acid reflux. 3. Allergic rhinitis. 4. Anxiety. PLAN: 1. Continue NG suction. 2. I will plan for EGD tomorrow. I will make further recommendation after EGD. Job ID: [id number] MTDD
[2020-04-03] MEDS ORDERED: Ondansetron PF 4 MG/2 ML Vial ONE ×2 (08:36→09:49)
[2020-04-03] MEDS ORDERED: Ketorolac Tromethamine 30 MG/ML VIAL IVP SCH (09:00)
[2020-04-03] MEDS ORDERED: Enoxaparin Sodium 40 MG/0.4 ML SYRINGE SC SCH (09:00)
[2020-04-03] MEDS ORDERED: Fentanyl 100 MCG/2 ML VIAL ONE (09:01)
[2020-04-03] MEDS: Pantoprazole 40 MG VIAL IVP SCH (09:02)
[2020-04-03] MEDS ORDERED: Ketorolac Tromethamine 30 MG/ML VIAL IVP PRN (09:19)
[2020-04-03] MEDS ORDERED: Lidocaine 1% PF 5 ML VIAL ONE (09:49)
[2020-04-03] MEDS ORDERED: PROPOFOL 200 MG/20 ML VIAL ONE (09:49)
[2020-04-03] MEDS ORDERED: Succinylcholine 200 MG/10 ml SYRINGE FS ONE (09:49)
[2020-04-03] MEDS ORDERED: Dexamethasone 20 MG/5 ML VIAL ONE (09:49)
[2020-04-03 12:03] VITALS: BP 162/76; TEMP 99
--- NOTE | 2020-04-03 13:05 | RAD ---
SINGLE CONTRAST UPPER GI WITH THIN BARIUM: HISTORY: Nausea, vomiting. Gastric volvulus. FINDINGS: Swallowing was grossly normal. There is unobstructed flow of contrast through the esophagus into the stomach, duodenum, and jejunum. No obstructing mass or stricture is seen. A moderate-sized paraeso phageal hiatal hernia is seen. IMPRESSION: 1. No evidence of gastric outlet or duodenal obstruction. 2. Paraesophageal hiatal hernia. POS: JUAN CARLOS
--- NOTE | 2020-04-03 16:45 | PDOC.DS.DS ---
Provider - Provider Date of Admission: 04/02/20 16:04 Date of Discharge: 04/03/20 Admitting Provider: Avery Adams MD Consultations: Gastroentrology Primary Care Physician: Manav Ordoñez PA-C Course - Hospital Course Hospital Course: Patient is a 59-year-old female with history of paraesophageal hernia repair last year presented to the emergency room with nausea, vomiting along with epigastric discomfort. She had intermittent chills without any fever or diarrhea. Her vital signs in the emergency room showed temperature 99.2, pulse rate of 106 respiration of 22 with a blood pressure of 175/89. Cardiac etiology was ruled out. CT scan of the abdomen and pelvis showed paraesophageal hiatal hernia with findings suspicious for associated gastric obstruction/volvulus. She was started on IV fluids and NG tube was placed. Her pain was controlled. Next morning she was evaluated by gastroenterology and underwent EGD. Official EGD report is pending at this time. She is tolerating clear liquid diet. She was advised to advance diet gradually as outpatient by gastroenterology. She has been cleared by GI service for discharge. Final diagnosis: Abdominal pain/nausea/vomiting due to paraesophageal hiatal hernia with associated gastric obstruction/volvulus GERD Anxiety Allergic rhinitis History of pulmonary embolism Chronic low back pain CKD stage II Dehydration on admission Patient understands above plan of care. Patient was advised to follow-up with GI and general surgery as outpatient. Resuscitation Status: 04/02/20 15:46 Resuscitation Status Routine Resuscitation Status: FULL: Full Resuscitation - Labs Lab Results: 04/03/20 06:13 04/03/20 06:13 Abnormal Lab Results - Last 48 hrs 04/02/20 05:24: Chloride 96 L, Anion Gap 22 H, Globulin 3.7 H 04/02/20 05:24: MCH 31.8 H, MPV 6.9 L, Neutrophils % 87.7 H, Lymphocytes % 7.4 L, Neutrophils # 8.2 H, Lymphocytes # 0.7 L 04/03/20 06:13: BUN 5 L 04/03/20 06:13: WBC 11.9 H, MCH 31.7 H, MPV 6.7 L, Neutrophils % 83.8 H, Lymphocytes % 7.7 L, Neutrophils # 10.0 H, Lymphocytes # 0.9 L, Monocytes # 1.0 H - Physical Exam Vitals: Vital Signs (12 hours) Temp Pulse Resp BP Pulse Ox 04/03/20 12:00 99.0 F 86 20 162/76 H 96 04/03/20 07:59 98.0 F 87 20 169/79 H 95 Weight Weight 167 lb 8.821 oz Physical Exam: The patient was seen and examined on the day of discharge. Plan - Discharge Medications Prescriptions: Pantoprazole [Protonix] 40 mg PO DAILY #30 tab Home Medications: Medication Instructions Recorded Confirmed Type busPIRone HCl [Buspirone HCl] 10 mg PO DAILY 05/02/18 04/02/20 History Metoprolol Succinate 50 mg PO QAM 07/03/18 04/02/20 History Acetaminophen [Tylenol Extra 1,000 mg PO Q6HR PRN 08/17/18 04/02/20 History Strength] Pantoprazole [Protonix] 40 mg PO DAILY #30 tab 04/03/20 Rx Allergies: No Known Allergies Allergy (Verified 04/02/20 17:28) - Discharge Instructions Discharge Instructions:: See patient discharge instruction sheet for detailed teaching. Patient verbalizes understanding of medications and is able to verbalize follow-up care. See Discharge Plan for additional discharge information. Patient secured in private vehicle prior to departure. - Follow up Plan Referrals: Albert Mcfarlane MD [Active] - 14 Days Jah Hammond MD [Active] - 14 Days Leora Diamond [Active] - 7 Days Disposition: HOME Quality - Care Measures CORE MEASURES:: N/A
--- NOTE | 2020-04-04 04:44 | PRG ---
DATE OF SERVICE: 04/03/2020 TIME OF VISIT: 1 p.m. SUBJECTIVE: A 59-year-old female has had a fundoplication for a large hiatal hernia in 2019. . She came in with_nausea, vomiting and retching . CAT scan findings are suggestive of possible gastric volvulous The patient underwent an EGD with decompresson. An upper GI series was done afterwards and appears the volvulous had resolved. The contrast does flow freely into the stomach and duodenum. The patient appears very comfortable after the EGD. She has no more retching, nausea or_vomiting OBJECTIVE: VITAL SIGNS: Stable. CARDIOVASCULAR: normal heart sounds ABDOMEN: non distended. She had no_tenderness. No masses. RECOMMENDATIONS: 1. Diet as tolerated. 2. Patient has Pantoprazole and will continue the medication. 3. To see Dr. Charly Mcfarlane. Come back to me in 2 weeks . Job ID: [id number] MTDD
--- NOTE | 2020-04-04 05:28 | OP ---
DATE OF PROCEDURE: 04/03/2020 OPERATIVE PROCEDURE: Esophagogastroduodenoscopy. PREOPERATIVE DIAGNOSIS: Recurrent nausea, vomiting, and CAT scan showing possibly gastric volvulus. POSTOPERATIVE DIAGNOSES: 1. Hemorrhagic friable mucosa at 30 cm from the _oral incisor , mostly corresponds to the area of twist. A puckered narrowed esophageal lumen at the same site which opened up upon advancing the scope. 2. Multiple small ulcerations over the proximal stomach, most likely from retching and gagging. The ulcerations look almost like a tear. 3. Otherwise normal stomach and duodenum. PROCEDURE NOTE: The patient was intubated and was given sedation by Anesthesia Department. This was done because the patient was having nausea and vomiting. The patient was placed in left lateral position. A bite block was placed. A Pentax video gastroscope, under direct vision, passed down the oropharynx, past the upper sphincter into the esophagus. The esophageal lumen appeared open and normal over the upper esophagus. At 30 to 32 cm from the oral incisor, the mucosa appears hemorrhagic and very friable. Also, the lumen is somewhat puckered and narrowed. The scope was advanced past this area with air insufflation. The mucosa appears very erythematous and friable . Over the proximal gastric body, the patient had multiple small ulcerations that appear more like tear. No active bleeding seen. At the GE junction again there is an area of blood clot seen. It was initially difficult to really locate the gastric antrum and pylorus. There was quite a bit of fluid retained in the gastric body and it was suctioned out . After maneuvers, I was able to get the scope into the gastric antrum and was able to advance the scope into the duodenal bulb and descending duodenum. . The stomach decompressed and the scope removed. On retroflexion, I could see the fundus and cardia and the fundoplication appears intact. The stomach decompressed and the scope was removed. RECOMMENDATIONS: 1. Discontinue NG tube. 2. Obtain upper GI series today, and if the upper GI series appears normal, we will start feeding the patient. From GI standpoint, the patient can be discharged home later on today. Job ID: [id number] MTDD
== END 2020-04-03 15:25 | disposition home or self-care (01) ==
LOC: ERS 04:58 → 3SE 16:04 → INTOOBSV 16:04
PROVIDERS: ADMIT Internal Medicine; ATTEND Internal Medicine
PROC: 0DJ08ZZ Inspection of Upper Intestinal Tract, Via Natural or Artificial Opening Endoscopic (ICD-10-PCS; principal; 2020-04-03)
DX: K25.4 Chronic or unspecified gastric ulcer with hemorrhage (principal); K44.9 Diaphragmatic hernia without obstruction or gangrene; K56.2 Volvulus; K21.9 Gastro-esophageal reflux disease without esophagitis; K80.20 Calculus of gallbladder without cholecystitis without obstruction; E86.0 Dehydration; F41.9 Anxiety disorder, unspecified; I12.9 Hypertensive chronic kidney disease with stage 1 through stage 4 chronic kidney disease, or unspecified chronic kidney disease; N18.2 Chronic kidney disease, stage 2 (mild); J30.2 Other seasonal allergic rhinitis; G89.29 Other chronic pain; M54.5 Low back pain; Z79.899 Other long term (current) drug therapy; Z86.711 Personal history of pulmonary embolism; Z20.822 Contact with and (suspected) exposure to COVID-19
CPT/HCPCS: 36415; 70450; 71045; 74177; 74246; 76705; 80048; 80053; 83690; 84484; 85025; 87635; 93005; 96361; 96372; 96374; 96375; 96376; C9113; G0378; J0500; J1100; J2270; J2405; J2550; J2704; J3010; J3480; J7120; Q9967; S0028; U0003

== ENCOUNTER 2020-04-24 12:17 | Observation (INO) | payer OTHER ==
[~2020-04-24 12:17] MED LIST changes: +Dexamethasone 20 MG/5 ML VIAL ONE; +Glycopyrrolate 0.2 MG/ML 5 ML SYRINGE ONE; -ISOVUE-370 76%-LOCM 1 ML ONE; +Ketorolac Tromethamine 30 MG/ML VIAL ONE; +Lidocaine 1% PF 5 ML VIAL ONE; +Ondansetron PF 4 MG/2 ML Vial ONE; +PHENYLEPHRINE-NS 100 MCG/ML 10 ML SYRINGE ONE; +PROPOFOL 200 MG/20 ML VIAL ONE; +Rocuronium Bromide 10 MG/ML (10ML VIAL) ONE; +Succinylcholine 200 MG/10 ml SYRINGE FS ONE
[2020-04-24] MEDS ORDERED: Morphine 4 MG/ML VIAL ONE ×2 (12:55→14:15)
[2020-04-24] MEDS ORDERED: Ondansetron PF 4 MG/2 ML Vial ONE (12:56)
[2020-04-24 13:16] LABS: #Lymphocytes 1.2 thou/uL (1.20-3.40); #Monocytes 0.5 thou/uL (0.11-0.59); #Neutrophils 5.7 thou/uL (1.40-6.50); %Basophils 0.5 % (0.0-1.0); %Eosinophils 0.5 % (0.0-10.0); %Lymphocytes 15.6 % (21.0-51.0); %Monocytes 7.1 % (0.0-10.0); %Neutrophils 76.3 % (42.0-75.0); Hemoglobin 15.4 g/dL (12.0-16.0); Mean Corpuscular HGB CONC 33.8 g/dL (32.0-36.0); Mean Corpuscular Hemoglobin 32.8 pg (27.0-31.0); Mean Corpuscular Volume 96.9 fL (78.0-98.0); Mean Platelet Volume 7.6 fL (7.4-10.4); Platelet Count 262 thou/uL (130-400); RBC Distribution Width 11.2 % (11.5-14.5); White Blood Cell (WBC) Count 7.4 thou/uL (4.8-10.8)
[2020-04-24 13:37] LABS: ALT (SGPT) 26 U/L (8-55); AST (SGOT) 22 U/L (5-34); Albumin 4.4 g/dL (3.5-5.0); Alkaline Phosphatase 67 U/L (40-110); Anion Gap 18 mmol/L (10-20); BUN (Urea Nitrogen) 7 mg/dL (9.8-20.1); Bilirubin, Total 0.4 mg/dL (0.2-1.2); Calc. Creatinine Clearance 0 mL/min (70-130); Calcium 9.3 mg/dL (7.8-10.44); Carbon Dioxide 25 mmol/L (22-29); Chloride 101 mmol/L (98-107); Globulin 3.3 g/dL (2.4-3.5); Glucose 97 mg/dL (70-105); Lipase 14 U/L (8-78); Potassium 3.6 mmol/L (3.5-5.1); Protein, Total 7.7 g/dL (6.0-8.3); Sodium 140 mmol/L (136-145)
[2020-04-24] MEDS ORDERED: Iopamidol-370 76% 500 ML 1 ML ONE (14:05)
--- NOTE | 2020-04-24 14:47 | CT ---
CT OF THE ABDOMEN AND PELVIS WITH IV CONTRAST INDICATION: 59-year-old female with abdominal pain and vomiting COMPARISON: Prior CT the abdomen and pelvis dated April 02, 2020 FINDINGS: ABDOMEN: Lung bases: Clear Liver: Small hepatic cysts in the right hepatic dome as well as within the right hepatic lobe. Gallbladder: Normal appearing. Pancreas: Normal. Adrenal glands: Normal. Spleen: Normal. Kidneys and ureters: Normal. No hydronephrosis. Vasculature: Normal. Lymph nodes:No lymphadenopathy. Free fluid in abdomen:No free fluid is evident. PELVIS: Small and large bowel: There is a large paraesophageal hernia with interval development of an organoa xial volvulus involving the body of the stomach. The more superior distal gastric body and antrum and demonstrates wall thickening with slightly diminished enhancement of the wall suspicious for pote ntial ischemia. Appendix:Not visualized Bladder: Normal. Rectal and perirectal soft tissues:Normal. Reproductive structures: Uterus is not visualized. Adnexa appear within normal limits. Free fluid in pelvis: No free fluid is evident. Lymphadenopathy pelvis: No lymphadenopathy is evident. Osseous structures: There is dextroscoliosis of the lumbar spine. There is scattered degenerative and osteoarthritic change. There is scattered degenerative and osteoarthritic changes. Soft tissues:Normal. IMPRESSION: Interval development of an organoaxial volvulus of the body of the stomach with slightly diminished e nhancement involving the herniated portions of the distal gastric body and antrum suspicious for early ischemia. There is prominent wall thickening of the herniated stomach in this region. Findings were discussed with Dr. Paulino at 2:40 PM on April 24, 2020.
[2020-04-24] MEDS ORDERED: Bupivacaine 0.25% HCL 30 ML VIAL ONE (15:46)
[2020-04-24] MEDS ORDERED: XYLOCAINE 2%-EPI 1:100,000 20 ML VIAL ONE (15:46)
[2020-04-24 16:01] LABS: SARS-CoV-2 NAA Rapid Test Not Detected (NotDetected)
[2020-04-24] MEDS ORDERED: Fentanyl 100 MCG/2 ML VIAL ONE ×4 (16:18→19:36)
--- NOTE | 2020-04-24 17:07 | RAD ---
EXAM: CHEST ONE VIEW: 04/24/20 HISTORY: Large hiatal hernia. FINDINGS/IMPRESSION: Compared to the prior chest CT scan done earlier today, 04/24/20, this is a paraesophageal hernia. The tip of the NG tube is well short of the GE junction region. This should probably be advanced at leas t 12 to 15 cm for it to enter the stomach. POS: [facility]
--- NOTE | 2020-04-24 18:55 | HP ---
CHIEF COMPLAINT: Inability to swallow. HISTORY OF PRESENT ILLNESS: This is a 59-year-old who has seen me recently history of a recurrent hiatal hernia, now it has become a volvulus, unable to keep anything down, CT scan confirms. She is going to the OR today. PAST MEDICAL HISTORY: Includes hypertension, anxiety. PAST SURGICAL HISTORY: As above. MEDICATIONS: At home include; 1. Buspirone. 2. Multivitamin. 3. Metoprolol. 4. Trazodone. 5. B12. ALLERGIES: NORVASC. SOCIAL HISTORY: No smoking, alcohol, or other drugs. REVIEW OF SYSTEMS: Otherwise, negative. PHYSICAL EXAMINATION: CHEST: Clear. HEART: Regular rate. ABDOMEN: Soft, nontender. IMAGING DATA: CT scan reviewed showing volvulus hiatal hernia. ASSESSMENT: Volvulus hiatal hernia. PLAN: Laparoscopic hiatal hernia repair plus or minus mesh, plus or minus feeding tube. Risks, benefits, and alternatives discussed. She gives consent. 30 minutes spent in review of films and discussion with the patient. Job ID: [id number]
[2020-04-24] MEDS ORDERED: Promethazine HCl 25 MG/ML VIAL SLOW IVP PRN (18:59)
[2020-04-24] MEDS ORDERED: Meperidine HCl/PF 25 MG/ML VIAL SLOW IVP PRN (18:59)
[2020-04-24] MEDS ORDERED: Ondansetron HCl/PF 4 MG/2 ML Vial IVP PRN (18:59)
[2020-04-24] MEDS ORDERED: HYDROmorphone 2 MG/ML VIAL SLOW IVP PRN (18:59)
[2020-04-24] MEDS ORDERED: Dextrose 50% Abboject 50 ML SYRINGE SLOW IVP PRN (20:11)
[2020-04-24] MEDS ORDERED: Promethazine HCl 25 MG/ML VIAL IM PRN (20:11)
[2020-04-24] MEDS ORDERED: hydrALAZINE 20 MG/ML VIAL SLOW IVP PRN (20:11)
[2020-04-24] MEDS ORDERED: Morphine 2 MG/ML VIAL SLOW IVP PRN (20:11)
[2020-04-24] MEDS ORDERED: Dextrose 5% in Water 1,000 ML IV PRN (20:11)
--- NOTE | 2020-04-24 20:37 | OP ---
DATE OF PROCEDURE: 04/24/2020 PREOPERATIVE DIAGNOSIS: Hiatal hernia with volvulus. POSTOPERATIVE DIAGNOSIS: Hiatal hernia with volvulus. PROCEDURES PERFORMED: 1. Laparoscopic hiatal hernia repair. 2. Percutaneous endoscopic gastrostomy tube (PEG). ANESTHESIA: General. ESTIMATED BLOOD LOSS: Minimal. COMPLICATIONS: None. SPECIMEN: None. FINDINGS: Volvulus of fundus of stomach through recurrent hernia. DESCRIPTION OF PROCEDURE: The patient was taken to the operating room and laid supine on the operating room table. After general anesthetic was obtained, OG tube was used to decompress stomach. A Glass catheter was placed. She was placed on a split leg table. Her abdomen was prepped and draped in a sterile fashion. Left subcostal 5-mm Optiview trocar was placed in usual fashion. High-flow pneumoperitoneum was obtained. A right lower quadrant 5-mm port as well as an assist port was placed in left upper quadrant. Camera port was placed above the umbilicus. The patient was placed in reverse Trendelenburg position. Snake liver tractor was used to raise the liver off the GE junction and held in place using a self-holding retractor. The fundus of the stomach distally was able to be flipped out of the stomach. The right domonique of the diaphragm was isolated and dissection was performed circumferentially. This dissection was actually fairly straightforward and easy bringing the GE junction in the previous wrap back down into the abdominal cavity. There was a sizable diaphragmatic defect. A 44 bougie was brought in and its tip left in the antrum of the stomach. Two sutures posterior and one anterior were used to close the fascial defect again. The patient had previous mesh. The mesh was used to incorporate for the hiatal hernia repair. The wrap appeared intact, so it was not adjusted in any way. Bougie was removed. The liver retractor was removed. EGD scope was passed through esophagus, stomach to the level of duodenum without obstruction. It was used as a guide to place a percutaneous endoscopic gastrostomy tube. This was placed in the usual fashion. This was confirmed using laparoscopy as well. All port sites were infiltrated using local anesthetic. All ports were removed under camera visualization. Pneumoperitoneum was let down. 4-0 Monocryl and Dermabond were used to close all skin incisions. The patient was sent to Recovery in stable condition. All instrument counts, needle counts, and lap counts were correct. Job ID: [id number]
[2020-04-24] MEDS: Morphine 4 MG/ML VIAL SLOW IVP PRN (21:26)
[2020-04-24] MEDS: Pantoprazole 40 MG VIAL IVP SCH (21:26)
[2020-04-24] MEDS: Sodium Chloride 0.9% 1,000 ML IV SCH (21:27)
[2020-04-25 00:16] VITALS: BMI 29.0
[2020-04-25] MEDS: Hydrocodone-Acetamin 15 ML UDCUP PO PRN ×4 (05:12→18:45)
[2020-04-25] MEDS: Ondansetron PF 4 MG/2 ML Vial IVP PRN (05:14)
[2020-04-25 05:19] LABS: #Lymphocytes 1.2 thou/uL (1.20-3.40); #Monocytes 0.7 thou/uL (0.11-0.59); #Neutrophils 6.5 thou/uL (1.40-6.50); %Basophils 0.3 % (0.0-1.0); %Eosinophils 0.4 % (0.0-10.0); %Lymphocytes 14.1 % (21.0-51.0); %Monocytes 8.7 % (0.0-10.0); %Neutrophils 76.6 % (42.0-75.0); Mean Corpuscular HGB CONC 33.9 g/dL (32.0-36.0); Mean Corpuscular Hemoglobin 33.1 pg (27.0-31.0); Mean Corpuscular Volume 97.9 fL (78.0-98.0); Mean Platelet Volume 7.5 fL (7.4-10.4); Platelet Count 199 thou/uL (130-400); RBC Distribution Width 11.1 % (11.5-14.5); Red Blood Cell (RBC) Count 3.92 mill/uL (4.20-5.40); White Blood Cell (WBC) Count 8.5 thou/uL (4.8-10.8)
[2020-04-25] MEDS: Morphine 4 MG/ML VIAL SLOW IVP PRN ×2 (05:20→09:51)
[2020-04-25 05:44] LABS: Anion Gap 14 mmol/L (10-20); BUN (Urea Nitrogen) Less than 4 mg/dL (9.8-20.1); Calc. Creatinine Clearance 115 mL/min (70-130); Calcium 8.1 mg/dL (7.8-10.44); Carbon Dioxide 25 mmol/L (22-29); Chloride 104 mmol/L (98-107); Glucose 84 mg/dL (70-105); Potassium 3.9 mmol/L (3.5-5.1); Sodium 139 mmol/L (136-145)
--- NOTE | 2020-04-25 08:45 | PRG ---
DATE OF SERVICE: 04/25/2020 SUBJECTIVE: Boy Prado is postop day #1 revision hiatal hernia. Ms. Prado is having some shoulder pain and pain in her PEG tube site. She denies nausea. She is not real hungry. OBJECTIVE: VITAL SIGNS: She is afebrile. Vital signs are stable. ABDOMEN: Her abdominal wounds are healing well. ASSESSMENT: Postop day 1, revision hiatal hernia repair with PEG tube placement. PLAN: We will instruct on PEG tube care and flushing and have her up and around today, probably home tomorrow. Job ID: [id number]
[2020-04-25] MEDS: busPIRone HCl 10 MG TAB PO SCH (09:57)
[2020-04-25] MEDS: Pantoprazole 40 MG VIAL IVP SCH ×2 (09:59→20:56)
[2020-04-25] MEDS: Sodium Chloride 0.9% 1,000 ML IV SCH (12:21)
[2020-04-26] MEDS: Hydrocodone-Acetamin 15 ML UDCUP PO PRN ×3 (01:28→21:23)
[2020-04-26] MEDS: Sodium Chloride 0.9% 1,000 ML IV SCH (01:35)
[2020-04-26] MEDS: Ondansetron PF 4 MG/2 ML Vial IVP PRN (07:39)
[2020-04-26] MEDS: busPIRone HCl 10 MG TAB PO SCH (07:58)
[2020-04-26] MEDS: Pantoprazole 40 MG VIAL IVP SCH ×2 (07:59→09:42)
[2020-04-26] MEDS ORDERED: Ondansetron ORAL SOLN. 4 MG/5 ML UDCUP PO PRN (09:10)
[2020-04-26] MEDS ORDERED: HYDROcodone/Acetaminophen 7.5/325 mg Tablet PO PRN (09:11)
[2020-04-27] MEDS: Hydrocodone-Acetamin 15 ML UDCUP PO PRN ×2 (04:58→10:52)
[2020-04-27] MEDS: busPIRone HCl 10 MG TAB PO SCH (08:49)
--- NOTE | 2020-04-27 08:55 | DIS ---
DATE OF ADMISSION: 04/24/2020 DATE OF DISCHARGE: 04/27/2020 ADMIT DIAGNOSIS: Recurrent hiatal hernia with volvulus. DISCHARGE DIAGNOSIS: Recurrent hiatal hernia with volvulus. PROCEDURE: Laparoscopic recurrent hiatal hernia repair with Dr. Mcfarlane with PEG feeding tube. CONDITION ON DISCHARGE: Improved. STAFF: Dr. Mcfarlane. HOSPITAL COURSE: The patient's postop course was uneventful. Started on a liquid diet, which she tolerated. She had pain at her PEG tube site. PEG site was loosened on postop day 2. On postop day 3, the patient is doing well. She is discharged home. She will do a liquid soup-type diet for another week and then a casserole diet. She is going to follow up with me in the office on Monday for PEG site check. Job ID: [id number]
[2020-04-27 10:59] VITALS: BP 133/91; TEMP 98.9
== END 2020-04-27 13:54 | disposition home or self-care (01) ==
LOC: ERS 12:17 → SDC/OP 16:23 → SJJU 18:37
PROVIDERS: ADMIT Surgery; ATTEND Surgery
PROC: 0BQT4ZZ Repair Diaphragm, Percutaneous Endoscopic Approach (ICD-10-PCS; principal; 2020-04-27)
PROC: 0DH63UZ Insertion of Feeding Device into Stomach, Percutaneous Approach (ICD-10-PCS; 2020-04-27)
DX: K44.9 Diaphragmatic hernia without obstruction or gangrene (principal); K31.89 Other diseases of stomach and duodenum; K21.9 Gastro-esophageal reflux disease without esophagitis; I10 Essential (primary) hypertension; F41.1 Generalized anxiety disorder; G89.29 Other chronic pain; M54.9 Dorsalgia, unspecified; K76.89 Other specified diseases of liver; Z79.899 Other long term (current) drug therapy; Z88.8 Allergy status to other drugs, medicaments and biological substances; Z20.822 Contact with and (suspected) exposure to COVID-19
CPT/HCPCS: 36415; 71045; 74177; 80048; 80053; 83690; 84484; 85025; 93005; 96372; 96374; 96375; 96376; C9113; G0378; J0690; J1100; J1885; J2270; J2405; J2550; J2704; J3010; Q9967; S0020; U0002

== ENCOUNTER 2020-07-21 08:27 | Emergency (ER) | payer OTHER, SELFPAY ==
[2020-07-21] MEDS ORDERED: Aspirin Chewable 81 MG TAB ONE (08:49)
[2020-07-21 09:03] LABS: #Lymphocytes 0.9 thou/uL (1.20-3.40); #Monocytes 0.6 thou/uL (0.11-0.59); #Neutrophils 4.7 thou/uL (1.40-6.50); %Basophils 0.2 % (0.0-1.0); %Eosinophils 0.7 % (0.0-10.0); %Lymphocytes 14.5 % (21.0-51.0); %Monocytes 9.3 % (0.0-10.0); %Neutrophils 75.3 % (42.0-75.0); Hemoglobin 15.1 g/dL (12.0-16.0); Mean Corpuscular HGB CONC 34.3 g/dL (32.0-36.0); Mean Corpuscular Volume 99.1 fL (78.0-98.0); Mean Platelet Volume 6.8 fL (7.4-10.4); Platelet Count 211 thou/uL (130-400); RBC Distribution Width 12.8 % (11.5-14.5); Red Blood Cell (RBC) Count 4.43 mill/uL (4.20-5.40); White Blood Cell (WBC) Count 6.3 thou/uL (4.8-10.8)
[2020-07-21 09:22] LABS: ALT (SGPT) 64 U/L (8-55); AST (SGOT) 76 U/L (5-34); Albumin 4.5 g/dL (3.5-5.0); Alkaline Phosphatase 97 U/L (40-110); Anion Gap 19 mmol/L (10-20); BUN (Urea Nitrogen) 9 mg/dL (9.8-20.1); Bilirubin, Total 0.4 mg/dL (0.2-1.2); Calc. Creatinine Clearance 0 mL/min (70-130); Calcium 9.8 mg/dL (7.8-10.44); Carbon Dioxide 21 mmol/L (22-29); Chloride 99 mmol/L (98-107); Globulin 3.4 g/dL (2.4-3.5); Glucose 94 mg/dL (70-105); Lipase 33 U/L (8-78); Potassium 3.5 mmol/L (3.5-5.1); Protein, Total 7.9 g/dL (6.0-8.3); Sodium 135 mmol/L (136-145)
[2020-07-21 14:16] LABS: Troponin I Less than 0.010 ng/mL (< 0.028)
== END 2020-07-21 12:55 | disposition home or self-care (01) ==
LOC: ERS 08:27
DX: R07.89 Other chest pain (principal); R94.5 Abnormal results of liver function studies; I10 Essential (primary) hypertension; K21.9 Gastro-esophageal reflux disease without esophagitis; Z79.899 Other long term (current) drug therapy
CPT/HCPCS: 36415; 71045; 80053; 83690; 84484; 85025; 85379; 93005

== ENCOUNTER 2025-03-05 10:01 | Outpatient (CLI) | payer MEDICARE, OTHER | END 2025-03-05 10:02 | disposition home or self-care (01) | LOC: BICRAD 10:01 | PROVIDERS: ATTEND Family Medicine | DX: M54.42 Lumbago with sciatica, left side (principal); G89.29 Other chronic pain; M41.9 Scoliosis, unspecified | CPT/HCPCS: 72100 ==